=== PATIENT | male | born 1950 | race Caucasian/White ===

== ENCOUNTER 2017-03-11 15:54 | Outpatient (CLI) | payer BC ==
--- NOTE | 2017-03-11 19:07 | RAD ---
FOUR VIEWS CERVICAL SPINE: 03/11/17 COMPARISON: None. HISTORY: C7 fracture. FINDINGS: AP, lateral, swimmer's and open mouth odontoid views cervical spine shows narrowing of the interverte bral disc with moderate osteophytes throughout the cervical spine. Visualization of the C7-T1 nerve s pace is seen on the swimmer's view. No obvious compression of the C7 vertebral body is seen. No preve rtebral soft tissue swelling is seen. IMPRESSION: Nonvisualization of mentioned C7 fracture. There are moderate degenerative changes of the cervical sp ine. POS: [facility]
== END 2017-03-11 15:55 | disposition home or self-care (01) ==
LOC: TBSIIMAG 15:54
PROVIDERS: ATTEND Physician Assistant
DX: M54.2 Cervicalgia (principal); M47.812 Spondylosis without myelopathy or radiculopathy, cervical region
CPT/HCPCS: 72040